=== PATIENT | male | born 2005 | race Two or more races ===

== ENCOUNTER 2024-02-10 17:52 | Emergency (ER) | payer SELFPAY ==
[2024-02-10 18:20] VITALS: BP 115/68; PULSE 87; RESP 13; TEMP 36.7; O2SAT 100
[2024-02-10 19:43] VITALS: BP 120/60; PULSE 70; RESP 14; TEMP 36.7; O2SAT 100
--- NOTE | 2024-02-10 21:02 | ED_ITS ---
HPI - Wound/Laceration General Chief Complaint: Wound/Laceration Stated Complaint: chin lac Time Seen by Provider: 02/10/24 19:51 Source: patient Mode of arrival: ambulatory Limitations: no limitations History of Present Illness HPI narrative: This is a 19 year old male that presents to the ER for laceration to the chin sustained just prior to arrival. Reports he slipped and fell into a sliding glass door. The door brake. He sustained a laceration to his chin. He did not lose consciousness. He is unsure of his last tetanus vaccination. Denies vomiting, numbness or weakness. Related Data Allergies Allergy/AdvReac Type Severity Reaction Status Date / Time No Known Allergies Allergy Verified 02/10/24 19:44 Review of Systems Review of Systems: CONSTITUTIONAL: Denies fever EYES: Denies visual changes GASTROINTESTINAL: Denies vomiting NEUROLOGIC: Denies numbness, or weakness. All systems reviewed & are unremarkable except as noted in HPI and below PMFSH Past Medical History Medical History (Updated 02/10/24 @ 22:55 by Linda Posey PA-C) No active medical problems Social History Social History (Updated 02/10/24 @ 21:04 by Linda Posey PA-C) Substance use: never Exam Narrative: GENERAL: Well-appearing, well-nourished, and in no acute distress. HEAD: Normocephalic. 3cm irregular laceration to the chin EYES: PERRLA and EOMI. ENT: Nares clear, no rhinorrhea or epistaxis. Mucous membranes moist. Oropharynx without tonsillar hypertrophy exudate or other lesions. NECK: Supple. No adenopathy or masses. CHEST: Clear to auscultation. No respiratory distress. No wheezes rales or rhonchi HEART: Regular rate and rhythm. No murmur heard. Normal peripheral pulses. EXTREMITIES: Normal range of motion. No edema. SKIN: Warm, dry, no rash. NEURO: No focal deficits. Alert and oriented x3. CN II-XII grossly intact. Normal gait PSYCH: Normal mood and affect Course Course Emergency Course: Patient educated on further wound care Vital Signs Vital signs: Vital Signs Temperature 98.0 F 02/10/24 18:20 Pulse Rate 87 02/10/24 18:20 Respiratory Rate 13 02/10/24 18:20 Blood Pressure 115/68 02/10/24 18:20 Pulse Oximetry 100 10/25/24 18:20 Oxygen Delivery Room Air 02/10/24 18:20 Temperature 98.1 F 02/10/24 19:43 Pulse Rate 70 02/10/24 19:43 Respiratory Rate 14 02/10/24 19:43 Blood Pressure 120/60 02/10/24 19:43 Pulse Oximetry 100 02/10/24 19:43 Oxygen Delivery Room Air 02/10/24 18:20 Procedures Laceration Laceration 1: Date: 02/10/24 Time: 22:56 Site: face Size (cm): 3 Description: irregular Depth: simple, single layer Local Anesthetic: lidocaine 1% Amount of anesthesia used (mL): 3 Pre-repair: wound explored, irrigated and minor debridement ====== Skin Level ====== Skin layer closed with: nylon Size (cm): 5-0 Number of sutures: 7 Technique: simple, interrupted ====== Subcutaneous Layer ====== ====== Muscle Layer ====== ====== Tendon Layer ====== MDM - Wound/Laceration MDM Narrative Medical decision making narrative: patient presents to the emergency department for complex laceration to the chin. His wound was irrigated and closed with sutures. Patient initially unsure of tetanus vaccination status. Now reports he believes he has had 1 at school within the last month. Patient educated on further wound care. Will be given follow-up with Plastic surgery. He was given warnings to return to the ER Differential Diagnosis Differential diagnosis: Likely laceration and avulsion of skin Critical Care Time Critical Care Time Critical Care Time: No Discharge Plan Discharge Clinical Impression: Laceration Patient Disposition: Home, Self-Care Condition: Stable Instructions: Care For Your Stitches (ED), Laceration (ED) Additional Instructions: Return to the emergency department if you experience fever, redness or swelling of your wound, abnormal drainage from your wound, or any other symptoms that are concerning to you. Apply antibiotic ointment daily. Do not soak the wound. Clean with mild soap and water daily Follow-up with plastic surgery. Sutures will need to be removed in 3-5 days Follow-up/Referrals: Liza Rosales MD [Physician] - PHYSICIAN,ACCOUNT MANAGER SALES REPRESENTATIVE [Primary Care Provider] -
== END 2024-02-10 22:58 | disposition home or self-care (01) ==
PROVIDERS: Emergency Provider Physician Assistant
DX: S01.81XA Laceration without foreign body of other part of head, initial encounter (principal); W01.110A Fall on same level from slipping, tripping and stumbling with subsequent striking against sharp glass, initial encounter
CPT/HCPCS: 12013; 99282